=== PATIENT | male | born 1985 | race Caucasian/White ===

== ENCOUNTER 2021-02-22 17:21 | Emergency (ER) | payer OTHER ==
[~2021-02-22] VITALS: Ht 188 cm; Wt 104.0 kg
[2021-02-22 20:05] VITALS: BP 150/92
[2021-02-22] MEDS ORDERED: LIDOCAINE 1% Multi-Dose 20 ML VIAL. IJ ONE (20:15)
--- NOTE | 2021-02-22 20:25 | PHYS DOC ---
Past History Past Surgical History: No Surgical History (KARINA ROSSI APRN) Alcohol Use: None (KARINA ROSSI APRN) General Adult EDM: Chief Complaint: LACERATION/AVULSION HPI: HPI: Patient is a 35-year-old male who presents to the emergency department for a laceration to his left ramirez this occurred today while he was performing a box jump and missed the box and hit his leg. Patient reports that he went to [facility] care was evaluated and they sent him to the emergency department. Patient reports that his tetanus is up-to-date. He denies any decreased range of motion, inability to ambulate or decrease sensation to his extremity. (KARINA ROSSI APRN) Review of Systems: Review of Systems: Constitutional: negative unless reported in HPI Eyes: negative unless reported in HPI HENT: negative unless reported in HPI Respiratory: negative unless reported in HPI Cardiovascular: negative unless reported in HPI GI: negative unless reported in HPI : negative unless reported in HPI Musculoskeletal: negative unless reported in HPI Integument: negative unless reported in HPI Neurologic: negative unless reported in HPI Endocrine: negative unless reported in HPI Lymphatic: negative unless reported in HPI Psychiatric: negative unless reported in HPI (KARINA ROSSI APRN) Current Medications: Current Meds: Current Medications Medications (Trade) Dose Ordered Sig/Amber Start Time Stop Time Status Last Admin Dose Admin Lidocaine HCl 20 ml 1X ONCE 02/22/21 20:15 02/22/21 20:16 UNV (KARINA ROSSI APRN) Allergies: Allergies: Allergies Coded Allergies Type Severity Reaction Last Updated Verified No Known Drug Allergies 02/22/21 No (KARINA ROSSI APRN) Physical Exam: PE: Constitutional: Well developed, well nourished, no acute distress, non-toxic appearance. [] HENT: Normocephalic, atraumatic, bilateral external ears normal, oropharynx moist, no oral exudates, nose normal. [] Eyes: PERRL, EOMI, conjunctiva normal, no discharge. [] Neck: Normal range of motion, no stridor Cardiovascular: Normal peripheral perfusion Lungs & Thorax: Normal work of breathing, no tachypnea Abdomen: Soft and flat Skin: Warm, dry, no erythema, no rash. [] Back: Normal range of motion Extremities: No tenderness, no cyanosis, no clubbing, ROM intact, no edema. Lower extremity: 3 cm laceration noted to left ramirez with an area approximately 2 cm that can be well approximated and will require sutures, no visible foreign bodies, rom intact, neuro intact Neurologic: Alert and oriented X 3, normal motor function, normal sensory function, no focal deficits noted. [] Psychologic: Affect normal, judgement normal, mood normal. [] (KARINA ROSSI APRN) Current Patient Data: Vital Signs: Vital Signs Date Time Temp Pulse Resp B/P (MAP) Pulse Ox O2 Delivery O2 Flow Rate FiO2 02/22/21 20:05 98.2 71 16 150/92 (111) 99 Room Air (KARINA ROSSI APRN) EKG: EKG: [] (KARINA ROSSI APRN) Radiology/Procedures: Radiology/Procedures: [] (KARINA ROSSI APRN) Heart Score: C/O Chest Pain: N/A Risk Factors: Risk Factors: DM, Current or recent (<one month) smoker, HTN, HLP, family history of CAD, obesity. Risk Scores: Score 0 - 3: 2.5% MACE over next 6 weeks - Discharge Home Score 4 - 6: 20.3% MACE over next 6 weeks - Admit for Clinical Observation Score 7 - 10: 72.7% MACE over next 6 weeks - Early Invasive Strategies (KARINA ROSSI APRN) Course & Med Decision Making: Course & Med Decision Making Pertinent Labs and Imaging studies reviewed. (See chart for details) Patient presents to the emergency department for a laceration to his left ramirez that occurred when he hit it performing a box jump this evening. Tetanus is up-to-date. Laceration does not appear to have any foreign bodies. There is an area of the laceration that is not well approximated that will need suture. Laceration was sutured, patient tolerated procedure. Patient is neurovascularly intact. Patient educated on wound care, suture removal. I discussed with patient all findings and diagnostic testing as well as the need to follow-up with PCP for further evaluation and treatment or return to the ER if any new or worsening symptoms. Strict return precautions were also discussed at length. Patient voiced understanding and agreement with the plan. Patient is hemodynamically stable at the time of disposition. (KARINA ROSSI APRN) Dragon Disclaimer: Dragon Disclaimer: This electronic medical record was generated, in whole or in part, using a voice recognition dictation system. (KARINA ROSSI APRN) Laceration Repair Lac Repair Time:2100 Confirmed: Patient, procedure, site, and site correct Consent: Patient has given verbal consent Laceration location: left ramirez Shape:irregular Depth:with subcutaneous tissue involvement Details: Clean with no foreign material Neurovascular, tendon exam: Intact Anesthesia:1% lidocaine Preparation: Sterile field established Irrigation: Wound irrigated with saline wound wash Skin closure: Simple interrupted sutures placed Size of suture5-0 ethilon Number of sutures:6 Complexity: Single layer Post procedure exam: Circulation, motor, sensory exam intact, bleeding controlled. Complications: None Patient tolerated: Well Performed by: ARABELLA Baeza Total time: 40 minutes (KARINA ROSSI APRN) Departure Departure: Impression: Primary Impression: Laceration Disposition: 01 HOME / SELF CARE / HOMELESS Condition: GOOD Referrals: PCP,NO (PCP) Patient Instructions: Laceration Care, Adult Additional Instructions: You were seen in the emergency department today for a laceration to your lower leg. This was repaired with sutures. Please keep the laceration site clean and dry. Please keep the dressing in place. Change the dressing twice a day and when soiled, you can apply polysporin or bacitracin ointment to laceration. Do not soak your leg in any water for 48 hours, however you can keep it clean with warm water and mild soap. Follow-up with your primary care provider or return to the emergency department to have your sutures removed in 7 to 10 days. Please monitor site for any signs of infection which include redness, warmth, swelling or drainage. He can take Tylenol and/or ibuprofen for your pain. Return to the emergency department if you develop any signs of infection, increased pain, decreased range of motion, high fevers refractory to treatment, intractable nausea or vomiting, or decrease sensation in your extremity. Attending Signature Attending Signature I have participated in the care of this patient and I have reviewed and agree with all pertinent clinical information above including history, exam, and recommendations. (RICHARD ESCOTO MD) KARINA ROSSI APRN Feb 22, 2021 20:25 RICHARD ESCOTO MD Feb 27, 2021 20:02
[2021-02-22] MEDS ORDERED: NEOMY/BACITR/POLYMYXIN OINT PACKET. TP ONE (21:41)
== END 2021-02-22 22:07 | disposition home or self-care (01) ==
LOC: ER 17:21
DX: S81.812A Laceration without foreign body, left lower leg, initial encounter (principal); W26.8XXA Contact with other sharp object(s), not elsewhere classified, initial encounter; Y93.89 Activity, other specified; Y92.89 Other specified places as the place of occurrence of the external cause; Y99.8 Other external cause status
CPT/HCPCS: 12002; 99282